=== PATIENT | male | born 1980 | race Caucasian/White ===

== ENCOUNTER 2021-04-28 00:04 | Observation (INO) | payer BC, SELFPAY ==
[2021-04-28] VITALS (18 sets, daily range): BP systolic 106–141; BP diastolic 65–95; PULSE 69–94; RESP 16–21; TEMP 36.3–37.3; O2SAT 93–100; BMI 28.1
--- NOTE | 2021-04-28 00:15 | XRR_ITS ---
PROCEDURE INFORMATION: Exam: XR Chest Exam date and time: 04/28/2021 12:15 AM Age: 41 years old Clinical indication: Pain; Other: Epigastric; Additional info: Chest pain TECHNIQUE: Imaging protocol: XR of the chest. Views: 1 view. COMPARISON: No relevant prior studies available. FINDINGS: Lungs: Lungs are clear. Pleural spaces: There is no pleural effusion or pneumothorax. Heart/Mediastinum: Cardiomediastinal contours are unremarkable. Bones/joints: Bones are unremarkable. XR/XR chest 1V portable [id number] IMPRESSION: No acute findings. Radiation Dose CTDIVOL = (mGy): DLP = (mGy-cm)
--- NOTE | 2021-04-28 00:15 | ECG_ITS ---
[facility] Test Date: 2021-04-28 Pat Name: Rakesh Livingston Department: Room: 279 Gender: Male Economic Consultant: : 1980 Requested By: Vinh Humphrey Order Number: [id number] Garcia MD: Sylwia Croft M.D. Measurements Intervals [place] Rate: 84 P: 41 AL: 140 QRS: -8 QRSD: 90 T: 43 QT: 365 QTc: 433 Interpretive Statements SINUS RHYTHM No previous ECG available for comparison Electronically Signed On 04-28-2021 17:57:39 TRAM OPERATOR by Sylwia Croft M.D. [id number]
--- NOTE | 2021-04-28 00:22 | W.ED.CHESTPA ---
HPI - Chest Pain General: Chief Complaint: Chest Pain Stated Complaint: Chest pain, Upper adb pain Time Seen by Provider: 04/28/21 00:18 Source: patient Mode of arrival: ambulatory Limitations: no limitations History of Present Illness: HPI narrative: 41-year-old male states been having some epigastric pain along with chest pain since 3 PM. States its been a burning pain he actually vomited on his way here and feels slightly improved denies any worsening factors. Denies any history of heart disease no family history of heart disease denies any diarrhea. States pain is currently a 4 out of 10. States he also is a very sharp pain in his upper abdomen Associated symptoms: Reports abdominal pain and vomiting; Deny dyspnea or fever(s) Review of Systems Const: Denies: fever(s), chills, body aches or change in appetite Eyes: Denies: blurry vision or eye discomfort ENMT: Denies: throat pain or dental pain Card: Reports: chest pain Resp: Denies: dyspnea GI: Reports: abdominal pain and vomiting : Denies: dysuria Musc: Denies: neck pain or back pain Skin/Breast: Denies: rash Neuro: Denies: headache(s) Psych: Denies: depression Adi/Lymph: Denies: easy bruising All/Imm: Denies: urticaria Physical Exam Const: COMMON NORMALS: no acute distress, patient oriented x3 and healthy appearing HENMT: COMMON NORMALS: normocephalic and atraumatic HEAD & SCALP: normocephalic and atraumatic Eye: COMMON NORMALS: Equal, round and reactive pupils present and EOMs intact bilaterally PUPIL: Yes Equal, round and reactive pupils present Neck/C-Spine: COMMON NORMALS: full ROM and supple Chest: COMMONS NORMALS: normal inspection of the chest and normal palpation of entire chest wall Resp: COMMON NORMALS: normal respiratory effort, No retractions, No use of accessory muscles and clear to auscultation bilaterally AUSCULTATION: clear to auscultation bilaterally Cardio: COMMON NORMALS: regular rate, regular rhythm and No murmurs present (Cardio) RATE: regular rate RHYTHM: regular rhythm GI: COMMON NORMALS: Normal to inspection, nondistended, normoactive bowel sounds present, Soft to palpation and no masses PALPATION: Yes Soft to palpation and Yes Tenderness to palpation present (GI) Details: RUQ Extremity: COMMON NORMALS: normal to inspection and full ROM Neuro: COMMON NORMALS: patient oriented x3, moves all extremities and no focal motor deficits Psych: COMMON NORMALS: mental status grossly normal, Normal thought process present and cooperative THOUGHT PROCESS: Normal thought process present Skin: COMMON NORMALS: no rashes or lesions noted and no wounds GENERAL SKIN EXAM: no rashes or lesions noted Course Vital Signs: Vital signs: Vital Signs Temperature 97.5 F L 04/28/21 00:12 Pulse Rate 69 04/28/21 00:12 Respiratory Rate 16 04/28/21 00:12 Blood Pressure 141/95 04/28/21 00:12 Pulse Oximetry 96 04/28/21 00:12 MDM - Chest Pain MDM Narrative: Medical decision making narrative: Patient presents here with chest wall with abdominal pain is abdominal pain got much worse Esha here is required multiple doses of pain medications. Patient CT scan showed cholelithiasis with cholecystitis patient started on IV antibiotics I spoke to surgeon and will admit at this time. Lab Data: Labs: Lab Results 04/28/21 04/28/21 04/28/21 00:30 00:30 00:30 WBC 11.0 10^3/uL H 10 ^3/uL (4.0-10.0) RBC 4.82 10^6/uL 10^6 /uL (4.1-5.3) Hgb 14.9 g/dL g/dL (11.7-16.6) Hct 40.2 % L % (42.0-52.0) MCV 83.4 fl fl (80-94) MCH 30.9 pg pg (28.0-34.0) MCHC 37.1 g/dL H g/dL (30.0-36.0) RDW 12.1 % % (12.1-15.1) Plt Count 163 10^3/cmm 10^3 /cmm (130-400) MPV 10.5 fL H fL (7.4-10.4) Neut % (Auto) 81.5 % % Lymph % (Auto) 10.8 % % [place] % (Auto) 6.8 % % Eos % (Auto) 0.4 % % Baso % (Auto) 0.2 % % Neut # (Auto) 8.93 10^3/uL H 10 ^3/uL (1.8-7.7) Lymph # (Auto) 1.2 10^3/uL 10^3/ uL (0.8-4.8) [place] # (Auto) 0.8 10^3/uL 10^3/ uL (0.2-0.9) Eos # (Auto) 0.0 10^3/uL 10^3/ uL (0.0-0.8) Baso # (Auto) 0.0 10^3/uL 10^3/ uL (0.0-0.1) Nucleated RBC % (a uto) 0 % % Nucleated RBCs # 0.0 /100WBC /100W BC D-Dimer Sodium 136 mmol/L mmol/L (136-145) Potassium 4.1 mmol/L mmol/L (3.5-5.1) Chloride 100 mmol/L mmol/L (98-107) Carbon Dioxide 24 mmol/L mmol/L (22-29) Anion Gap 16.1 (5-19) BUN 13 mg/dL mg/dL (6-20) Creatinine 1.0 mg/dL mg/dL (0.7-1.2) GFR Calculation 81.9 mL/min L mL/ min (90-130) Glucose 111 mg/dL mg/dL (65-115) Calculated Osmolal ity 283 mOsm/kg L mOs m/kg (285-295) Calcium 9.7 mg/dL mg/dL (8.5-10.5) Total Bilirubin 0.4 mg/dL mg/dL (0.15-1.2) AST 25 U/L U/L (0-40) ALT 29 U/L U/L (0-41) Alkaline Phosphata se 99 IU/L IU/L (40-130) Troponin T Baselin e 6 ng/L ng/L (0-15) Troponin T 120 Min [place] Delta Troponin T NT-Pro-B Natriuret Pep 33 pg/mL pg/mL (0-125) Total Protein 7.4 g/dL g/dL (6.6-8.7) Albumin 4.5 g/dL g/dL (3.5-5.2) Globulin 2.9 g/dL g/dL (1.3-4.6) Lipase 37 U/L U/L (13-60) 04/28/21 04/28/21 00:30 02:40 WBC RBC Hgb Hct MCV MCH MCHC RDW Plt Count MPV Neut % (Auto) Lymph % (Auto) [place] % (Auto) Eos % (Auto) Baso % (Auto) Neut # (Auto) Lymph # (Auto) [place] # (Auto) Eos # (Auto) Baso # (Auto) Nucleated RBC % (a uto) Nucleated RBCs # D-Dimer <= 0.27 ug/mIFEU ug/mIFEU (0-0.59) Sodium Potassium Chloride Carbon Dioxide Anion Gap BUN Creatinine GFR Calculation Glucose Calculated Osmolal ity Calcium Total Bilirubin AST ALT Alkaline Phosphata se Troponin T Baselin e Troponin T 120 Min [place] 6.00 ng/L ng/L (0-15) Delta Troponin T 0 ABS# ABS# (0-10) NT-Pro-B Natriuret Pep Total Protein Albumin Globulin Lipase Imaging Data^: CXR: Attestation: I personally reviewed and interpreted this imaging study as follows: My impression: no acute abnormality CT Abd/Pel: Attestation: I personally reviewed and interpreted this imaging study as follows: Radiologist's impression: [address] [address] [address] Scan Report Signed Patient: Rakesh Livingston Unit #: [id number] : 1980 Age/Sex: 41 / M ADM Date: 04/28/21 Loc: ER Room/Bed: Attending Dr: Ordering Provider/Ordering MD: Mily Cai MD Date of Service: 04/28/21 Procedure(s): CT angio chest w abd pel w con Accession Number(s): [id number] Report Number: [id number] PROCEDURE INFORMATION: Exam: CTA Chest With Contrast Exam date and time: 04/28/2021 1:17 AM Age: 41 years old Clinical indication: Nausea and vomiting; Abdominal pain; Epigastric; Dyspnea; Chest pressure; Prior surgery; Surgery date: 6+ months; Surgery type: Back TECHNIQUE: Imaging protocol: Computed tomographic angiography of the chest with contrast. 3D rendering (Not supervised by radiologist): MIP and/or 3D reconstructed images were created by the technologist. Radiation optimization: All CT scans at this facility use at least one of these dose optimization techniques: automated exposure control; mA and/or kV adjustment per patient size (includes targeted exams where dose is matched to clinical indication); or iterative reconstruction. Contrast material: OMNI 350; Contrast volume: 95 ml; Contrast route: INTRAVENOUS (IV); COMPARISON: CR (CHEST, ) 04/28/2021 12:39 AM RADIATION DOSE METRICS: Total DLP (mGy-cm): 1521.07 FINDINGS: Pulmonary arteries: No pulmonary embolism. Aorta: Unremarkable. No aortic aneurysm. No aortic dissection. Lungs: Calcified pulmonary nodule/nodules, consistent with prior granulomatous disease. Pleural spaces: Unremarkable. No pneumothorax. No pleural effusion. Heart: Unremarkable. No cardiomegaly. No pericardial effusion. Lymph nodes: Calcified lymph nodes are present, secondary to prior granulomatous disease. Bones/joints: Unremarkable. No acute fracture. Soft tissues: Unremarkable. IMPRESSION: No pulmonary embolism. PROCEDURE INFORMATION: Exam: CT Abdomen And Pelvis With Contrast Exam date and time: 04/28/2021 1:17 AM Age: 41 years old Clinical indication: Nausea and vomiting; Abdominal pain; Epigastric; Dyspnea; Chest pressure; Prior surgery; Surgery date: 6+ months; Surgery type: Back TECHNIQUE: Imaging protocol: Computed tomography of the abdomen and pelvis with contrast. Radiation optimization: All CT scans at this facility use at least one of these dose optimization techniques: automated exposure control; mA and/or kV adjustment per patient size (includes targeted exams where dose is matched to clinical indication); or iterative reconstruction. Contrast material: OMNI 350; Contrast volume: 95 ml; Contrast route: INTRAVENOUS (IV); COMPARISON: CR (CHEST, ) 04/28/2021 12:39 AM RADIATION DOSE METRICS: Total DLP (mGy-cm): 1521.07 FINDINGS: Lungs: The lung bases are clear. No effusion Liver: Normal. No mass. Gallbladder and bile ducts: There are stones in the gallbladder with pericholecystic fluid and wall thickening. Pancreas: Normal. No ductal dilation. Spleen: Normal. No splenomegaly. Adrenal glands: Normal. No mass. Kidneys and ureters: 1.4 cm left renal cyst. Stomach and bowel: Mild amount of formed stool in the colon. Appendix: No evidence of appendicitis. Intraperitoneal space: Unremarkable. No free air. No significant fluid collection. Vasculature: Unremarkable. No abdominal aortic aneurysm. Lymph nodes: Unremarkable. No enlarged lymph nodes. Urinary bladder: Unremarkable as visualized. Reproductive: Unremarkable as visualized. Bones/joints: Grade 1 anterolisthesis present at L5-S1 secondary to L5 pars defects. Soft tissues: Unremarkable. CT/CT angio chest w abd pel w con IMPRESSION: 1. Cholelithiasis with acute cholecystitis. 2. Mild constipation. 3. 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 COMMENTS: Consistent with the [employer]'s Incidental Findings Committee white paper (J Am Halle Radiol 2018): Any incidental renal lesion less than 1 cm or classified as too small to characterize, or any incidental cystic renal lesion characterized as simple-appearing, is likely benign. No follow-up imaging is recommended for these lesions per consensus recommendations based on imaging criteria. Radiation Dose CTDIVOL = (mGy): DLP = 1521.07 1521.07 (mGy-cm) Dictated By: Thor Jorgensen EKG Data^: EKG 1: Attestation: I personally reviewed and interpreted this EKG as follows: EKG interpretation date: 04/28/21 EKG interpretation time: 00:49 Interpretation: nsr hr [address] or t wave abnormalities qrs 105 qtc 376 EKG 2: Attestation: I personally reviewed and interpreted this EKG as follows: EKG interpretation date: 04/28/21 EKG interpretation time: 00:48 Interpretation: nsr hr [address] or t wave abnormalities qrs 90 qtc 406 Discharge Plan Discharge Patient Disposition: Admitted As Inpatient Clinical Impression: Cholecystitis Condition: Stable Coding Level of Care Code ED Vice President [employer] Ad[employer] Sales for Chg Fwd Exam Comprehensive
[2021-04-28] MEDS: ondansetron 2 mg/ML SDV 2 mL 4 MG IVP (00:34)
[2021-04-28 00:52] LABS: Basophils % 0.2 %; Eosinophils % 0.4 %; Hematocrit 40.2 % (42.0-52.0); Hemoglobin 14.9 g/dL (11.7-16.6); Lymphocytes # 1.2 10^3/uL (0.8-4.8); Lymphocytes % 10.8 %; Mean Corpuscular HGB Conc 37.1 g/dL (30.0-36.0); Mean Corpuscular Hemoglobin 30.9 pg (28.0-34.0); Mean Corpuscular Volume 83.4 fl (80-94); Mean Platelet Volume 10.5 fL (7.4-10.4); Monocytes # 0.8 10^3/uL (0.2-0.9); Monocytes % 6.8 %; Neutrophils # 8.93 10^3/uL (1.8-7.7); Neutrophils % 81.5 %; Nucleated Red Blood Cells % 0 %; Platelet Count 163 10^3/cmm (130-400); Red Blood Count 4.82 10^6/uL (4.1-5.3); Red Cell Distribution Width 12.1 % (12.1-15.1)
[2021-04-28] MEDS: lidocaine 2% viscous 15 ML, aluminum-mag hydrox-simethicon 30 ML, sucralfate oral liq 1 GM PO (00:53)
[2021-04-28] MEDS: LORazepam 2 mg/mL INJ 1 mL 1 MG IVP (00:53)
[2021-04-28] MEDS: morphine 4 mg/mL SDV 1 mL IVP (00:56)
[2021-04-28 01:08] LABS: Troponin(5th) Baseline 6 ng/L (0-15)
[2021-04-28 01:14] LABS: D Dimer <= 0.27 ug/mIFEU (0-0.59)
[2021-04-28 01:15] LABS: Alanine Aminotransferase 29 U/L (0-41); Albumin Level 4.5 g/dL (3.5-5.2); Alkaline Phosphatase 99 IU/L (40-130); Aspartate Amino Transferase 25 U/L (0-40); Blood Urea Nitrogen 13 mg/dL (6-20); Calcium 9.7 mg/dL (8.5-10.5); Carbon Dioxide 24 mmol/L (22-29); Chloride 100 mmol/L (98-107); Globulin 2.9 g/dL (1.3-4.6); Glomerular Filtration Rate 81.9 mL/min (90-130); Glucose 111 mg/dL (65-115); Lipase 37 U/L (13-60); NT Pro B Type Natriuretic Pept 33 pg/mL (0-125); Osmolality Calculated 283 mOsm/kg (285-295); Sodium 136 mmol/L (136-145); Total Bilirubin 0.4 mg/dL (0.15-1.2); Total Protein 7.4 g/dL (6.6-8.7)
[2021-04-28 01:17] LABS: Anion Gap 16.1 (5-19); Potassium 4.1 mmol/L (3.5-5.1)
--- NOTE | 2021-04-28 01:17 | CTR_ITS ---
PROCEDURE INFORMATION: Exam: CTA Chest With Contrast Exam date and time: 04/28/2021 1:17 AM Age: 41 years old Clinical indication: Nausea and vomiting; Abdominal pain; Epigastric; Dyspnea; Chest pressure; Prior surgery; Surgery date: 6+ months; Surgery type: Back TECHNIQUE: Imaging protocol: Computed tomographic angiography of the chest with contrast. 3D rendering (Not supervised by radiologist): MIP and/or 3D reconstructed images were created by the technologist. Radiation optimization: All CT scans at this facility use at least one of these dose optimization techniques: automated exposure control; mA and/or kV adjustment per patient size (includes targeted exams where dose is matched to clinical indication); or iterative reconstruction. Contrast material: OMNI 350; Contrast volume: 95 ml; Contrast route: INTRAVENOUS (IV); COMPARISON: CR (CHEST, ) 04/28/2021 12:39 AM RADIATION DOSE METRICS: Total DLP (mGy-cm): 1521.07 FINDINGS: Pulmonary arteries: No pulmonary embolism. Aorta: Unremarkable. No aortic aneurysm. No aortic dissection. Lungs: Calcified pulmonary nodule/nodules, consistent with prior granulomatous disease. Pleural spaces: Unremarkable. No pneumothorax. No pleural effusion. Heart: Unremarkable. No cardiomegaly. No pericardial effusion. Lymph nodes: Calcified lymph nodes are present, secondary to prior granulomatous disease. Bones/joints: Unremarkable. No acute fracture. Soft tissues: Unremarkable. IMPRESSION: No pulmonary embolism. PROCEDURE INFORMATION: Exam: CT Abdomen And Pelvis With Contrast Exam date and time: 04/28/2021 1:17 AM Age: 41 years old Clinical indication: Nausea and vomiting; Abdominal pain; Epigastric; Dyspnea; Chest pressure; Prior surgery; Surgery date: 6+ months; Surgery type: Back TECHNIQUE: Imaging protocol: Computed tomography of the abdomen and pelvis with contrast. Radiation optimization: All CT scans at this facility use at least one of these dose optimization techniques: automated exposure control; mA and/or kV adjustment per patient size (includes targeted exams where dose is matched to clinical indication); or iterative reconstruction. Contrast material: OMNI 350; Contrast volume: 95 ml; Contrast route: INTRAVENOUS (IV); COMPARISON: CR (CHEST, ) 04/28/2021 12:39 AM RADIATION DOSE METRICS: Total DLP (mGy-cm): 1521.07 FINDINGS: Lungs: The lung bases are clear. No effusion Liver: Normal. No mass. Gallbladder and bile ducts: There are stones in the gallbladder with pericholecystic fluid and wall thickening. Pancreas: Normal. No ductal dilation. Spleen: Normal. No splenomegaly. Adrenal glands: Normal. No mass. Kidneys and ureters: 1.4 cm left renal cyst. Stomach and bowel: Mild amount of formed stool in the colon. Appendix: No evidence of appendicitis. Intraperitoneal space: Unremarkable. No free air. No significant fluid collection. Vasculature: Unremarkable. No abdominal aortic aneurysm. Lymph nodes: Unremarkable. No enlarged lymph nodes. Urinary bladder: Unremarkable as visualized. Reproductive: Unremarkable as visualized. Bones/joints: Grade 1 anterolisthesis present at L5-S1 secondary to L5 pars defects. Soft tissues: Unremarkable. CT/CT angio chest w abd pel w con IMPRESSION: 1. Cholelithiasis with acute cholecystitis. 2. Mild constipation. 3. 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 COMMENTS: Consistent with the [place]'s Incidental Findings Committee white paper (J Am Halle Radiol 2018): Any incidental renal lesion less than 1 cm or classified as too small to characterize, or any incidental cystic renal lesion characterized as simple-appearing, is likely benign. No follow-up imaging is recommended for these lesions per consensus recommendations based on imaging criteria. Radiation Dose CTDIVOL = (mGy): DLP = 1521.07~1521.07 (mGy-cm)
[2021-04-28] MEDS: HYDROmorphone 1 mg/mL INJ 1 mL IVP (01:21)
[2021-04-28] MEDS: iohexol 350 mg/mL 100 mL Btl IV (01:50)
[2021-04-28] MEDS: piperacillin-tazobactam 3.375 GM in sodium chloride 0.9% (plus) 50 ML IV ×4 (03:09→22:46)
[2021-04-28 03:14] LABS: Troponin 5 2HR Delta 0 ABS# (0-10)
--- NOTE | 2021-04-28 04:55 | US_ITS ---
WS: [id number] ULTRASOUND ABDOMEN LIMITED CLINICAL INFORMATION: abd pain COMPARISON: None. FINDINGS: Liver Size: Normal. Craniocaudal length: 15.8 cm. Echogenicity: Normal. Surface nodularity: None. Mass (size and location): None. Bile ducts Intrahepatic ducts: Normal. Common bile duct diameter: 0.4 cm. Gallbladder Cholelithiasis. Gallstones: Present Gallbladder sludge: Present Gallbladder wall thickening: Present Pericholecystic fluid: None. Sonographic Rodriguez sign: Absent. Pancreas Normal as visualized. Right kidney: Normal. Hydronephrosis: None. Size: 10.2 cm x 4.5 cm x 5.5 cm. Abdominal aorta and IVC Visualized portions are normal. Ascites: None. US/US gall bladder 34003 IMPRESSION: 1. Diffuse fatty infiltration liver. 2. Cholelithiasis with gallbladder wall thickening and edema measuring 7.2 mm. Gallbladder sludge. Normal common bile duct. Findings suspicious for acute cho lecystitis. 3. No hydronephrosis in right kidney.
--- NOTE | 2021-04-28 05:56 | PM.HP ---
Providers/Chief Complaint Admitting Physician: Cristian Tavarez MD Chief Complaint: Chest pain, Upper adb pain History of Present Illness Mr. Rakesh Livingston is a pleasant 41 year old male scented to the emergency department with epigastric pain associated with chest pain since yesterday afternoon. Pain has been burning and he did have one episode of vomiting, patient had some improvement and there is no evidence of worsening factors. Pain has been described as being sharp not being referred no history of fevers or chills. CT scan of the chest shows no pulmonary embolism CT scan of the abdomen and pelvis shows 1. Cholelithiasis with acute cholecystitis. 2. Mild constipation. 3. 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 Lab work showed mild elevation of WBC count otherwise unremarkable General surgery was consulted for further evaluation and management. 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 Yet he did mention to me that he has bowel surgery when he was an infant or child but he does not remember exactly what kind of surgery. Via a mid right-sided transverse incision Review of Systems General: Reports: 10 or more systems reviewed and unremarkable except in HPI and below Medications/Allergies Home Medications Medication Instructions Recorded Confirmed Last Taken Type acetaminophen [Tylenol Ex Str 1,000 mg PO Q4H PRN 04/28/21 04/28/21 Unknown History Rapid Release] bupropion HCl 150 mg PO QAM 04/28/21 04/28/21 Unknown History sertraline 200 mg PO BEDTIME 04/28/21 04/28/21 Unknown History trazodone 50 mg PO BEDTIME 04/28/21 04/28/21 Unknown History Allergies Allergy/AdvReac Type Severity Reaction Status Date / Time No Known Allergies Allergy Verified 04/28/21 09:35 Vitals/I&O/Wt Last Vital Signs Temp 98.2 F 04/28/21 04:55 Pulse 87 04/28/21 04:55 Resp 17 04/28/21 04:55 BP 114/71 04/28/21 04:55 Pulse Ox 93 04/28/21 04:55 Weight last 48 hrs Weight 185 lb Weight 185 lb Physical Exam Const: COMMON NORMALS: no acute distress and patient oriented x3 GENERAL APPEARANCE: cooperative ORIENTATION/CONSCIOUSNESS: Yes awake, Yes oriented to person, Yes oriented to place and Yes oriented to time HENMT: COMMON NORMALS: normocephalic HEAD & SCALP: normocephalic Eye: COMMON NORMALS: Equal, round and reactive pupils present and no scleral icterus PUPIL: Yes Equal, round and reactive pupils present Lymph: LYMPHATIC: no lymphadenopathy noted Chest: COMMONS NORMALS: normal inspection of the chest Resp: COMMON NORMALS: normal respiratory effort and clear to auscultation bilaterally AUSCULTATION: clear to auscultation bilaterally Cardio: COMMON NORMALS: S1 normal heart sound present and S2 normal heart sound present; negative for No murmurs present (Cardio) HEART SOUNDS: S1 normal heart sound present and S2 normal heart sound present GI: COMMON NORMALS: Soft to palpation; negative for No hepatosplenomegaly present INSPECTION: Yes normal to inspection PALPATION: Yes Soft to palpation, No Firmness to palpation present (GI), Yes Tenderness to palpation present (GI) Details: RUQ (Positive Rodriguez's sign), No Guarding due to palpation present (GI), No Rigid due to palpation and No No hepatosplenomegaly present Neuro: COMMON NORMALS: patient oriented x3 SENSORIUM/ORIENTATION: Yes oriented to person, Yes oriented to place and Yes oriented to time Psych: COMMON NORMALS: mental status grossly normal Skin: COMMON NORMALS: no rashes or lesions noted GENERAL SKIN EXAM: no rashes or lesions noted Data : 04/28/21 00:30 04/28/21 00:30 A&P Assessment and plan (1) Cholecystitis: Plan of care; After thorough history physical examination and reviewing the chart and images with my personal intrepreatation.certainly the patient does have a component of acute calculus cholecystitis with the surrounding edema of the gallbladder wall. We will proceed with ultrasound dedicated for liver and gallbladder to have a delineated anatomy of the biliary system. I did discuss with the patient about options of surgical intervention versus conservative management understanding that there is a higher potential of conversion to open given the fact that the patient previous laparotomy. Patient also understands the option of conservative management in details interval cholecystectomy down the road in 4 to 6 weeks and also an option of cholecystostomy tube was offered to the patient. Further through the day after the ultrasound of the liver and gallbladder was done that showed below; 1. Diffuse fatty infiltration liver. 2. Cholelithiasis with gallbladder wall thickening and edema measuring 7.2 mm. Gallbladder sludge. Normal common bile duct. Findings suspicious for acute cholecystitis. 3. No hydronephrosis in right kidney. Decided at this point that he would like to proceed with surgery. I counseled the patient for laparoscopic cholecystectomy possible open, indications risks including but not limited injury to the common bile duct and/or other viscera,that may require potential future surgical interventions including but not limited to ERCP and or laparatomy that may include Hepatobiliary surgery.Benefits and alternatives all discussed with the patient, and patient did agree to proceed accordingly. All questions have been answered and all concerns have been addressed to patient's satisfaction. Rationale was carefully and clearly discussed with the patient.Appropriate informed consent have been reviewed and signed. Status: Acute Attestations Medical Necessity Statement*: Observation Time Spent in Patient Care: (>than 50% of time spent in counselling and/or direct pt care on unit). Coding Level of Care Code Acute Chocolate Coater for [facility] Fwd Exam Comprehensive Diagnoses Cholecystitis K81.9
--- NOTE | 2021-04-28 06:15 | ECG_ITS ---
[facility] Test Date: 2021-04-28 Pat Name: Rakesh Livingston Department: Room: 279 Gender: Male Instrument Tester: : 1980 Requested By: Vinh Humphrey Order Number: [id number] Jose MD: Sylwia Croft M.D. Measurements Intervals [place] Rate: 75 P: 52 CT: 156 QRS: -2 QRSD: 94 T: 35 QT: 379 QTc: 425 Interpretive Statements SINUS RHYTHM No previous ECG available for comparison Electronically Signed On 04-28-2021 18:00:58 TOOL AND DIE MAKER by Sylwia Croft M.D. [id number]
[2021-04-28 07:26] LABS: Troponin 5 6HR Delta 0 ng/L (0-12)
[2021-04-28] MEDS: lactated ringers 1,000 ML 150 ML IV ×3 (07:31→23:57)
--- NOTE | 2021-04-28 09:08 | PC.NURSE ---
As chief writer was walking out of room patient stated he was wondering if anyone called [facility] to see if anyone would do his surgery so he would be close to home. [employer] Press Feeder called Dr Tavarez and told him what patient had said. Dr Tavarez talked to patient. patient and discussing if they want to go to [place] for surgery.
--- NOTE | 2021-04-28 09:56 | PC.CHAP ---
Pastoral Care Encounter/Spiritual Assessment Type of Contact [] Declined ballast regulator operator visit [] Patient/Family/Request visit [] Outpatient visit [] Follow-up visit [] Physician referral [] Code/Alert [x] Routine visit [] Staff referral [] Actively dying [] Patient sleeping [] Family support [] [] Out of room [] Palliative care [] [] Receiving care in room [] Pre-surgical visit [] Trauma [] Long length of stay [] ICU visit [] Other: Relational/Emotional Strength [x] Patient feels connected with others/family/visitors/staff [] Distress [] Loneliness/isolation [] Abandonment Spirituality of Patient [x] Person of Elena [x] Attends Buddhism of their Elena [x] Believes in Prayer [] Reads Bible or Hoahaoism materials [] There are Spiritual issues to be addressed Consumer Insight Manager Interventions [x] Prayer [x] Active listening [x] Non-anxious presence [x] Spiritual/emotional support [] Crisis/trauma care [] Spiritual counseling [] Bereavement support [] Provided bereavement packet [] Provided Bible/devotional materials [] Provided toy/stuffed animal, coloring book to patient or family member [] Provided Communion [] Anointing/Danube [] Salvation [x] Completed spiritual assessment [] Other: Impact on Illness or Injury [] Angry [] Fearful [] Anxious [] Often cries [] Exhaustion [] Unable to work [] Unable to attend druze [] Unable to walk/stand [] Unable to read [] Unable to drive [] Unable to eat/drink [] Unable to sleep [] Unable to be with family [] Patient intubated [] Other: Summary Pt's was present in the room. He will have gallbladder surgery today. He works on the [employer] and was here when he became ill. They live in [place]. They are persons of elena and attend druze in [place]. Gladly accepted prayer. Time spent with patient 10 m
--- NOTE | 2021-04-28 10:20 | PC.NURSE ---
patient taken to OR
[2021-04-28] MEDS: acetaminophen 1,000 MG/100 ML PIGGYBACK 400 MG IV (10:38)
[2021-04-28] MEDS: sodium chloride 0.9% 1,000 ML 30 ML IV (10:38)
--- NOTE | 2021-04-28 10:52 | ANES.PREANE2 ---
Pre-Anesthetic Assessment Pre-Anesthetic Assessment: Height/Weight: Height 1.73 m Weight 83.915 kg Temp Pulse Resp BP Pulse Ox 98.7 F 87 18 117/77 96 04/28/21 10:27 04/28/21 10:27 04/28/21 10:27 04/28/21 10:27 04/28/21 10:27 Preop Diagnosis: Acute calculus cholecystitis Proposed Procedure: Operation Date: 04/28/21 13:10 Proposed Procedures p Laparoscopic Cholecystectomy(Not Applicable) - Cristian Tavarez MD Was Beta Margy taken within 24 hours: N/A Was Clonidine taken within 24 hours: N/A Social: Social History: No alcohol and No tobacco Exam: Pre-Anes Outpt Exam: alert, oriented x 3, clear to auscultation bilaterally and regular rate & rhythm Airway: Submandibular: WNL Cervical ROM: WNL MP: 2 History/ROS: No significant history except as noted Pulmonary: Pulmonary: None reported CV/HEM: CV/HEM: None reported : : None reported Hepatic: Hepatic: None reported GI: Comments: Symptomatic cholelithiasis Metabolic: Metabolic: None reported Musc/skel: Musc/skel: None reported Neuropsych: Neuropsych: Anxiety and Depression Anesthetic Plan: ASA status: 2 Anesthesia: General Meds/Allergies Current Medications: Current Medications Generic Name Dose Route Start Last Admin Trade Name Simone PRN Reason Stop Dose Admin Lactated Ringer's 1,000 mls @ 150 m ls/hr 04/28/21 06:30 04/28/21 07:31 Lactated Ringers IV 150 mls/hr .Q6H40M THIERNO Administration Piperacillin Sod/T azobactam 50 mls @ 12.5 mls /hr 04/28/21 06:30 04/28/21 07:31 Sod 3.375 gm/ So dium Chloride IV 0 mls/hr Q8H THIERNO Infusion Protocol Sodium Chloride 1,000 mls @ 30 ml s/hr 04/28/21 10:30 04/28/21 10:38 Sodium Chloride 0.9% IV 04/29/21 10:29 30 mls/hr .Q24H THIERNO Administration Data Anesthesia CBC & Chem 7: 04/28/21 00:30 04/28/21 00:30 Other Labs: Laboratory Results - last 48 hr 11/04/28/21 04/28/21 00:30 00:30 00:30 WBC 11.0 H RBC 4.82 Hgb 14.9 Hct 40.2 L MCV 83.4 MCH 30.9 MCHC 37.1 H RDW 12.1 Plt Count 163 MPV 10.5 H Neut % (Auto) 81.5 Lymph % (Auto) 10.8 Garrard % (Auto) 6.8 Eos % (Auto) 0.4 Baso % (Auto) 0.2 Neut # (Auto) 8.93 H Lymph # (Auto) 1.2 Garrard # (Auto) 0.8 Eos # (Auto) 0.0 Baso # (Auto) 0.0 Nucleated RBC % (auto) 0 Nucleated RBCs # 0.0 D-Dimer Sodium 136 Potassium 4.1 Chloride 100 Carbon Dioxide 24 Anion Gap 16.1 BUN 13 Creatinine 1.0 GFR Calculation 81.9 L Glucose 111 Calculated Osmolality 283 L Calcium 9.7 Total Bilirubin 0.4 AST 25 ALT 29 Alkaline Phosphatase 99 Troponin T Baseline 6 Troponin T 120 Minute Delta Troponin T Troponin T Hi Sens 6Hr Troponin T Hi Sens 6Hr Delta NT-Pro-B Natriuret Pep 33 Total Protein 7.4 Albumin 4.5 Globulin 2.9 Lipase 37 04/28/21 04/28/21 04/28/21 00:30 02:40 06:30 WBC RBC Hgb Hct MCV MCH MCHC RDW Plt Count MPV Neut % (Auto) Lymph % (Auto) Garrard % (Auto) Eos % (Auto) Baso % (Auto) Neut # (Auto) Lymph # (Auto) Garrard # (Auto) Eos # (Auto) Baso # (Auto) Nucleated RBC % (auto) Nucleated RBCs # D-Dimer <= 0.27 Sodium Potassium Chloride Carbon Dioxide Anion Gap BUN Creatinine GFR Calculation Glucose Calculated Osmolality Calcium Total Bilirubin AST ALT Alkaline Phosphatase Troponin T Baseline Troponin T 120 Minute 6.00 Delta Troponin T 0 Troponin T Hi Sens 6Hr 6.00 Troponin T Hi Sens 6Hr Delta 0 NT-Pro-B Natriuret Pep Total Protein Albumin Globulin Lipase Cardiac Studies: No Data to Display
[2021-04-28] MEDS: lidocaine 2% INJ 20 mL (11:46)
--- NOTE | 2021-04-28 12:43 | PM.OP ---
Operative Report Date of procedure: April 28, 2021 Pre-op Diagnosis: Acute calculus cholecystitis Post-op diagnosis: same Post-op Findings: Fatty liver with hepatomegaly Procedure Done: Laparoscopic cholecystectomy Implants: Pieces of Surgicel at the gallbladder fossa Specimens removed/disposition: Gallbladder and contents Surgeon: Cristian Tavarez Loom Winder Tender: Surgical techs Susanne Blanco and Luz Rosales Circulating nurses Payal and Irina Anesthesia: General (Dr. Barrera) Estimated blood loss (mL): 25 IV fluids (mL): 2,300 Condition: stable Disposition: observation Procedure: Patient was identified in the holding area and taken back to the operative suite, placed in supine position intubated by anesthesia. Time-out was done verifying the patient's name/date of /planned procedure and destination after the procedure, all were in agreement. SCDs confirmed to be functioning, preoperative antibiotics administered per protocol, and beta gary protocol was confirmed. Patient was appropriately secured to the table, footboard was applied to the OR table, before prep and drape anesthesia was asked to tilt the table back and forth to make sure that the patient is appropriately secured and she was. Prep and drape of the abdomen was done under the usual sterile technique, started by a 5 mm 30 degree scope through 5 mm Optiview trocar towards the right anterior axillary line, started by low flow then high flow. No injuries or bleeding. No intra-abdominal adhesions. followed by that supraumbilical skin incision,skin incision was done by a 11 blade knife,and Cordova trocar technique under direct visualization was used to enter the abdominal without injuring any abdominal viscera, started with a 10 mm laparoscope and under direct vision there was no evidence of any injuries, the scope then switched to a 30? ,10 millimeter scope and under direct visualization 5 millimeter trocar was inserted in the epigastric region followed by a 5 mm trocar at the midclavicular line were inserted in the right upper quadrant that was done after injection of local lidocaine 2% at all incision sites. Gallbladder showed acute on top of chronic cholecystitis and Fatty Liver Patient was then positioned in the head up and tilted to the left. Ratcheted forceps were introduced into the lateral most 5mm port and was applied unto the fundus of the gallbladder cephalad and using Bullet forceps the infundibulum of the gallbladder was retracted laterally. And to help more with the countertraction at the tenaculum 5 mm was used that was applied after aspirating about 40 mL of bilious content from the gallbladder due to the remarkable distention and inflammatory process. And the gallbladder fluid was sent for cultures and sensitivity. Using [place] forceps then L-hook cautery to dissect the peritoneum overlying the Calot's triangle which was then opened medially and laterally until the cystic duct and the cystic artery were skeletonized. Dissection was carried along the body of the gallbladder and after ensuring critical view of safety was identfied. Cystic duct and cystic artery where seen connected to the gallbladder. Clips were applied on the cystic duct towards the common bile duct 1 towards the gallbladder then divided is in sharp scissors, 2 clips were then applied onto the cystic artery and 1 towards the gallbladder and divided by sharp scissors. Additional clips were applied to the traversing vessel then divided. Dissection was then carried along of the gallbladder from the gallbladder fossa(showing an intrahepatic component of the gallbladder) using cautery as well as sharp dissection with heat energy. The gallbladder then was dissected out from the gallbladder fossa totally , cholecystectomy was then achieved and was placed in an Endo Catch bag and then retrieved from the Cordova trocar site under direct visualization using a 5 mm 30? scope through the epigastric trocar, specimen was then passed to the circulating nurse to go for permanent pathology,irrigation and hemostasis was done to the gallbladder fossa after hemostasis was secured, a survey laparoscopy was done that showed no injuries. Suction irrigation(2 L of warm saline) was obtained. Final hemostasis achieved by placement of Surgicel at the gallbladder fossa. The supraumbilical fascial defect was then closed using interrupted number one PDS sutures using a fascial closure device ;Martinez Seth under direct visualization.A final Survery Laproscopy showed no evience of injuries or bleeding. Following that Gas was allowed to deflate,Trocars were then taken out under direct vision there was no evidence of bleeding. Specimen was passed to the circulating nurse for permanent pathology. No drains were placed and the supraumbilical incision as well as all trocar sites were closed by 3/0 Vicryl followed by skin sergey to approximate the skin edges of the incisions , dry dressing was applied and the patient patient got extubated and was taken to recovery area in a stable condition. Count of sponges,needles and instruments were completed at the end of the procedure I was present for the whole entire procedure.
--- NOTE | 2021-04-28 13:04 | SUR.PHASEI ---
PT TO PACU SLEEPY BUT AWAKES TO VOICE PT SHAKES HEAD NO TO QUESTIONS OF PAIN AND NAUSEA AND COLD, VSS ABD SOFT WITH BANDAIDS X 4 SITES D/I PT QUICKLY BACK TO SLEEP WITH GOOD RESP NOTED. VSS.
--- NOTE | 2021-04-28 13:16 | SUR.PHASEI ---
PT SLEEPS IF NOT DISTURBED BUT EASILY AWAKES AND VERBALIZED NO PAIN OR NAUSEA, PT BACK TO SLEEP SATS DOWN TO 91% ON RA TRIAL, PT PLACED ON 3LNC SATS 93-94% NO DISTRESS NOTED PT VSS. WILL CALL REPORT TO FLOOR.
--- NOTE | 2021-04-28 13:48 | ANE.PACU2 ---
Inpatient post-anesthesia follow up: Vital signs: Temperature 97.8 F Pulse Rate 90 Respiratory Rate 21 Blood Pressure 136/85 Pulse Oximetry 96 Oxygen Delivery Me thod Nasal Cannula Oxygen Flow Rate 3 Fraction of Inspir ed Oxygen Hydration adequate: Yes Nausea and vomiting: No Pain level: 4 Mental status: Baseline
--- NOTE | 2021-04-28 15:28 | PC.NURSE ---
rcvd verbal order from Dr Tavarez for CBC and CMP
[2021-04-28] MEDS: HYDROcodone-acetaminophen 5-325 mg Tablet 1 TAB PO ×2 (17:17→21:12)
[2021-04-29 00:45] VITALS: BP 108/64; PULSE 88; RESP 16; TEMP 36.9; O2SAT 96
[2021-04-29] MEDS: HYDROcodone-acetaminophen 5-325 mg Tablet 1 TAB PO ×3 (00:59→10:27)
[2021-04-29 02:48] LABS: Hematocrit 35.2 % (42.0-52.0); Hemoglobin 12.1 g/dL (11.7-16.6); Mean Corpuscular HGB Conc 34.4 g/dL (30.0-36.0); Mean Corpuscular Hemoglobin 30.6 pg (28.0-34.0); Mean Corpuscular Volume 89.1 fl (80-94); Platelet Count 125 10^3/cmm (130-400); Red Blood Count 3.95 10^6/uL (4.1-5.3); Red Cell Distribution Width 12.2 % (12.1-15.1); White Blood Count 5.9 10^3/uL (4.0-10.0)
[2021-04-29 03:03] LABS: Alanine Aminotransferase 198 U/L (0-41); Albumin Level 3.5 g/dL (3.5-5.2); Alkaline Phosphatase 110 IU/L (40-130); Anion Gap 9.9 (5-19); Aspartate Amino Transferase 150 U/L (0-40); Blood Urea Nitrogen 9 mg/dL (6-20); Calcium 8.4 mg/dL (8.5-10.5); Carbon Dioxide 28 mmol/L (22-29); Chloride 107 mmol/L (98-107); Globulin 2.4 g/dL (1.3-4.6); Glomerular Filtration Rate 73.4 mL/min (90-130); Glucose 118 mg/dL (65-115); Osmolality Calculated 292 mOsm/kg (285-295); Potassium 3.9 mmol/L (3.5-5.1); Sodium 141 mmol/L (136-145); Total Bilirubin 0.6 mg/dL (0.15-1.2); Total Protein 5.9 g/dL (6.6-8.7)
[2021-04-29 03:49] LABS: Absolute Segmented Neutrophil 4.4 10/cmm (1.6-7.1); Band Neutrophils Absolute 0.1 10^3/cmm (0.0-1.2); Eosinophils 1 %; Lymphocytes 12 %; Monocytes Absolute 0.3 10^3/cmm (0.1-0.6); Segmented Neutrophils 75 %; Total Cells Counted 100 (0-100)
[2021-04-29 03:51] LABS: Absolute Neutrophil 4.5 10^3/cmm (1.4-6.5); Platelet Estimate Normal (Normal)
[2021-04-29 04:00] VITALS: BP 127/74; PULSE 87; RESP 18; TEMP 36.9; O2SAT 95
--- NOTE | 2021-04-29 05:46 | PC.NURSE ---
SHIFT SUMMARY Has rested for intervals. Wakes up easily and says doesn't feel getting good sleep. Has received po Hydrocodone X3 tonight for incisional abd pain. Bandaids dry & intact to X3 surgical stabs RUQ and one to umbilicus. Is urinating well with 1700ml output tonight. Also taking po well and has had several cups of jello. Denies any nausea with clear liquid diet. IV infusing without difficulty at 150ml/hr rate. Is receiving IV antibiotics.
[2021-04-29] MEDS: lactated ringers 1,000 ML 100 ML IV (06:20)
[2021-04-29] MEDS: piperacillin-tazobactam 3.375 GM in sodium chloride 0.9% (plus) 50 ML IV (06:21)
--- NOTE | 2021-04-29 06:28 | P.SS_ITS ---
Short Stay Summary Providers Date of Admit/Discharge: 04/29/21 Attending Provider: Mechanical prophylaxis were applied to the patientCristian Tavarez MD Chief Complaint: Chest pain, Upper adb pain HPI History of Present Illness Mr. Rakesh Livingston is a pleasant 41 year old male scented to the emergency department with epigastric pain associated with chest pain since yesterday afternoon. Pain has been burning and he did have one episode of vomiting, patient had some improvement and there is no evidence of worsening factors. Pain has been described as being sharp not being referred no history of fevers or chills. CT scan of the chest shows no pulmonary embolism CT scan of the abdomen and pelvis shows 1. Cholelithiasis with acute cholecystitis. 2. Mild constipation. 3. 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 Yet he did mention to me that he has bowel surgery when he was an or child but he does not remember exactly what kind of surgery. Via a mid right-sided transverse incision Patient was admitted on my service for observation with the plan for laparoscopic cholecystectomy. This documentation was created by [employer] quill cleaning machine operator software (known for inherent quill cleaning machine operator error). Every effort was made to assure accuracy of quill cleaning machine operator. Any obvious errors or omissions should be clarified with the author of the document. Review of Systems General: Reports: 10 or more systems reviewed and unremarkable except in HPI and below Home Meds/Allergies Home Medications and Allergies Home Medications Medication Instructions Recorded Confirmed Type acetaminophen 1,000 mg PO Q4H PRN 04/28/21 04/28/21 History bupropion HCl 150 mg PO QAM 04/28/21 04/28/21 History sertraline 200 mg PO BEDTIME 04/28/21 04/28/21 History trazodone 50 mg PO BEDTIME 04/28/21 04/28/21 History Allergies Allergy/AdvReac Type Severity Reaction Status Date / Time No Known Allergies Allergy Verified 04/29/21 06:30 Vitals/I&O/Wt Last Vital Signs Temp 98.4 F 04/29/21 00:45 Pulse 88 04/29/21 00:45 Resp 16 04/29/21 00:45 BP 108/64 04/29/21 00:45 Pulse Ox 96 04/29/21 00:45 04/28/21 04/28/21 04/29/21 14:59 22:59 06:59 Intake Total 3425 / 3425 290 / 3715 2720 / 6435 Output Total 400 / 425 1300 / 1725 Balance 3400 / 3400 -110 / 3290 1420 / 4710 Weight last 48 hrs Weight 185 lb Weight 185 lb Physical Exam Narrative: EXAM NARRATIVE: Patient is conscious alert oriented X3 BMI 28.1 Head and neck examination PERRLA no masses no cervical lymphadenopathy no jaundice Cardiac examination audible S1-S2 no murmurs no gallops no arrhythmias Chest is clear bilateral,abscence of Rhonchi or wheezes,no surgical emphysema Abdomen nontender except mildly at the incision sites, band aids in place without soaking of the incisions, otherwise nondistended soft no organomegaly guarding or rigidity/no signs of peritonitis. Bowel sounds are positive Extremities no cyanosis no clubbing no edema Hospital Course Admission Diagnoses Acute calculus cholecystitis Hospital Course Mr. Vazquez undergone uneventful laparoscopic cholecystectomy with intraoperative findings of acute on top of chronic calculus cholecystitis and hepatomegaly due to fatty infiltration. Postoperatively patient continued to have stable vital signs and tolerating p.o. intake. Adequate urine output. Pain is being controlled with oral pain medications. Passing gas. Blood work showed resolution of leukocytosis and back to normal WBC count with a current level of 5.9. Stable H&H. Serum creatinine 1.1, slight elevation in AST 150 and ALT 198 with a bilirubin normal 0.6, elevation of LFTs likely due to cauterization of the gallbladder fossa for hemostasis purposes. Mechanical DVT prophylaxis were applied to the patient and has been ambulatory. Patient continued to receive Zosyn during his hospital stay and will be discharged home on oral antibiotics. Discharge Summary Patient undergone uneventful laparoscopic cholecystectomy and met the appropriate criteria for safe discharge. We will plan to advance diet as tolerated with education on low-fat diet. Have the patient follow-up with me in 1 week at my office with repeat labs in the form of CMP. Refrain from heavy lifting and specific education will be given to the patient with that regard. SSS Data Data Completed and Pending: Completed Studies During Hospitalization Category Date Time Status CT angio chest w abd pel w con Urge nt Cat Scan 04/28/21 01:17 Completed XR chest 1V [place] ble [id number] Stat Exams 04/28/21 00:15 Completed US gall bladder 7 [id number] Urgent Ultrasound 04/28/21 04:55 Completed Pending at discharge Category Date Time Status ES surgery / GI i mages Routine Exams 04/28/21 10:36 Ordered Body Fluid Cultur e & GS Routine Lab 04/28/21 11:48 Results Pathology: Surgic al [PTH] Routine Pth 04/28/21 12:59 Ordered Diagnoses at Discharge Discharge Diagnosis (1) Cholecystitis: Status: Resolved Discharge Plan Discharge Patient Disposition: Home Condition: Stable Prescriptions: New Augmentin 875-125 mg tablet 1 tab PO Q12H Qty: 10 RF: 0 hydrocodone-acetaminophen 5-325 mg tablet 1 tab PO Q6H PRN (Reason: pain) Qty: 28 RF: 0 Continued trazodone 50 mg tablet 50 mg PO BEDTIME RF: 0 sertraline 100 mg tablet 200 mg PO BEDTIME RF: 0 acetaminophen 500 mg Tablet 1,000 mg PO Q4H PRN (Reason: Pain) RF: 0 bupropion HCl 150 mg tablet extended release 24 hr 150 mg PO QAM RF: 0 Discharge Orders: Discharge Order (Routine); Ordered 04/29/21 Ordered By: Cristian Tavarez Referrals: Cristian Tavarez MD [Physician] - (Return to surgery office in 1 week with repeat CMP) Discharge Diet: Advance as tolerated Discharge Activity: Limit activity as instructed Patient Instructions: Opioid Safety Activity Restrictions/Additional Instructions: 1. Patient can shower after 48 hours from surgery 2. Remove Band-Aids tomorrow and can take down after 48 hours from surgery. 3. Up and walking as tolerated 4. Do not lift more than 5 pounds first 2 weeks after surgery and not more than 25 pounds 6 to 8 weeks after surgery. 5. Do not operate heavy machinery or drive while using pain medications. 6.Contact the office or return to the ER for worsening nausea vomiting fevers or chills, or noticing any redness around incision sites or discharge. 7. Avoid taking excess Tylenol not to exceed 3 g of acetaminophen per day. 8. Educate the patient about importance to get lab work in the form of c omprehensive metabolic panel prior to follow-up at the office in 1 week Attestations Medical Necessity Statement*: Observation status for perioperative care and continuation of IV antimicrobial Time Spent in Patient Care*: greater than 30 min Specific Discharge Activities: Specific discharge activities: educating patient and educating and/or supporting family/caregiver Status at Discharge: Cognitive status at discharge: cognitively intact , Behavioral status at discharge: cooperative , Functional status at discharge: independent ambulation Overall status at discharge: patient is progressing back to baseline Quality Metrics Clinical Quality Measures: During this hospital stay, did patient experience: None Coding Level of Care Code Acute Librarian Head for [facility] Fwd Diagnoses Cholecystitis K81.9
--- NOTE | 2021-04-29 06:29 | PC.NURSE ---
DR ROQUE Tavarez in to see pt. If all goes well with increasing diet pt will be discharged later today. IV rate was decreased to 100ml/hr. Is passing gas this morning
[2021-04-29 08:41] VITALS: BP 128/78; PULSE 80; RESP 16; TEMP 37.3; O2SAT 94
--- NOTE | 2021-04-29 10:07 | PC.CHAP ---
Pastoral Care Encounter/Spiritual Assessment Type of Contact [] Declined loss control consultant visit [] Patient/Family/Request visit [] Outpatient visit [] Follow-up visit [] Physician referral [] Code/Alert [x] Routine visit [] Staff referral [] Actively dying [] Patient sleeping [] Family support [] [] Out of room [] Palliative care [] [] Receiving care in room [] Pre-surgical visit [] Trauma [] Long length of stay [] ICU visit [] Other: Relational/Emotional Strength [x] Patient feels connected with others/family/visitors/staff [] Distress [] Loneliness/isolation [] Abandonment Spirituality of Patient [x] Person of Elena [] Attends Protestant of their Elena [x] Believes in Prayer [] Reads Bible or Baptism materials [] There are Spiritual issues to be addressed Clay Plant Treater Interventions [x] Prayer [] Active listening [] Non-anxious presence [] Spiritual/emotional support [] Crisis/trauma care [] Spiritual counseling [] Bereavement support [] Provided bereavement packet [] Provided Bible/devotional materials [] Provided toy/stuffed animal, coloring book to patient or family member [] Provided Communion [] Anointing/[place] [] Salvation [x] Completed spiritual assessment [] Other: Impact on Illness or Injury [] Angry [] Fearful [] Anxious [] Often cries [] Exhaustion [] Unable to work [] Unable to attend pentecostalism [] Unable to walk/stand [] Unable to read [] Unable to drive [] Unable to eat/drink [] Unable to sleep [] Unable to be with family [] Patient intubated [] Other: Summary Time spent with patient 10 min
--- NOTE | 2021-04-29 10:55 | PC.NURSE ---
Discharge orders gone over with patient and spouse and given to spouse. Patient verbalized understanding. Patient wheeled in wheelchair to private vehicle and left with spouse.
[2021-04-29 11:02] VITALS: BP 128/78; PULSE 80; RESP 16; TEMP 37.3; O2SAT 94
--- NOTE | 2021-04-30 15:51 | PC.SOCIAL ---
pt wished for specifications writer to cancel follow up appointment with dr. quigley. pt is out of town and will follow up with his pcp.
== END 2021-04-29 11:05 | disposition home or self-care (01) ==
LOC: ER 03:23 → MEDSURG 08:58
PROVIDERS: Nurse Practitioner Family; Admitting Provider Surgery; Emergency Provider Emergency Medicine; Visit Provider Surgery
PROC: 0FT44ZZ Resection of Gallbladder, Percutaneous Endoscopic Approach (ICD-10-PCS; CPT 47562; principal; 2021-04-28 13:10)
DX: K80.00 Calculus of gallbladder with acute cholecystitis without obstruction (principal)
CPT/HCPCS: 47562; 36415; 71045; 71275; 74177; 76705; 80053; 83690; 83880; 84484; 85007; 85025; 85027; 85378; 87070; 87075; 87205; 88304; 93005; 96361; 96365; 96367; 96375; 99285; G0378; J0330; J1100; J1170; J1885; J2060; J2270; J2370; J2405; J2543; J2704; J3010; J3490; J7030; Q9967